=== PATIENT | female | born 1965 | race African-American/Black ===

== ENCOUNTER 2017-04-29 10:11 | Outpatient (CLI) | payer OTHER ==
[2017-04-29 11:01] LABS: ALT (SGPT) 16 U/L (8-55); AST (SGOT) 15 U/L (5-34); Albumin 3.9 g/dL (3.5-5.0); Alkaline Phosphatase 95 U/L (40-150); Anion Gap 15 mmol/L (10-20); BUN (Urea Nitrogen) 9 mg/dL (9.8-20.1); Bilirubin, Total 0.6 mg/dL (0.2-1.2); Calc. Creatinine Clearance 0 mL/min (70-130); Calcium 9.9 mg/dL (7.8-10.44); Carbon Dioxide 26 mmol/L (22-29); Cardiac Risk 4.1 (Less than 4.5); Chloride 106 mmol/L (98-107); Cholesterol 163 mg/dl (< 200 Desired); Estimated GFR-MDRD Greater than 90; Globulin 3.3 g/dL (2.4-3.5); Glucose 212 mg/dL (70-105); HDL Cholesterol 40 mg/dL (>60 Neg Risk); LDL Cholesterol, Calculated 105 mg/dL; Potassium 4.3 mmol/L (3.5-5.1); Protein, Total 7.2 g/dL (6.0-8.3); Sodium 143 mmol/L (136-145); Triglycerides 89 mg/dL (Less than 150)
[2017-04-29 11:12] LABS: Hemoglobin A1c 12.7 % (4.0-6.0)
[2017-04-29 11:47] LABS: Thyroid Stimulating Hormone 0.003 uIU/mL (0.35-4.94); Vitamin D, 25 Hydroxy 41.3 ng/ml (> 30.0)
[2017-04-29 21:37] LABS: Free Thyroxine Index 2.74 (1.4-3.1); T4 9.3 ug/dL (4.87-11.72)
== END 2017-04-29 10:12 | disposition home or self-care (01) ==
LOC: BURLAB 10:11
PROVIDERS: ATTEND Internal Medicine
DX: R53.81 Other malaise (principal); E11.65 Type 2 diabetes mellitus with hyperglycemia; E78.00 Pure hypercholesterolemia, unspecified; E03.9 Hypothyroidism, unspecified; E55.9 Vitamin D deficiency, unspecified; D51.8 Other vitamin B12 deficiency anemias; Z79.899 Other long term (current) drug therapy
CPT/HCPCS: 36415; 80053; 80061; 82306; 82607; 83036; 84436; 84443; 84479

== ENCOUNTER 2019-12-13 19:11 | Emergency (ER) | payer OTHER ==
[~2019-12-13 19:11] MED LIST: Iopamidol 370 76% 100 ML VIAL ONE
[2019-12-13] MEDS ORDERED: Pantoprazole 40 MG VIAL ONE (19:30)
[2019-12-13] MEDS ORDERED: Ondansetron PF 4 MG/2 ML Vial ONE (19:30)
[2019-12-13 19:34] LABS: Hemoglobin 14.4 g/dL (12.0-16.0); Mean Corpuscular HGB CONC 30.1 g/dL (32.0-36.0); Mean Corpuscular Hemoglobin 22.9 pg (27.0-31.0); Mean Corpuscular Volume 76.1 fL (78.0-98.0); Mean Platelet Volume 11.9 fL (7.4-10.4); Platelet Count 172 thou/uL (130-400); RBC Distribution Width 15.1 % (11.5-14.5); White Blood Cell (WBC) Count 10.4 thou/uL (4.8-10.8)
[2019-12-13 19:57] LABS: Band 5 % (5-11); Eosinophils 1 % (0-10); Hypochromia SLIGHT = 6-15 cells (100X) (0-5/hpf); Lymphocytes 16 % (21-51); MDiff Complete? YES; Microcytosis SLIGHT = 6-15 cells (100X) (0-5/hpf); Monocytes 9 % (0-10); Neutrophil 69 % (42-75)
[2019-12-13 20:00] LABS: Clarity Clear (Clear); Leukocyte Small (Negative); Nitrite Negative (Negative); Protein, Urine (Dipstick) Negative (Neg-Trace)
[2019-12-13 20:01] LABS: Bilirubin Negative (Negative); Blood, Urine Trace (Negative); Glucose, Urine (Dipstick) 500 mg/dL (Negative); Urobilinogen 0.2 mg/dL (Less than 2)
[2019-12-13 20:02] LABS: Bacteria/HPF 1+ HPF (None Seen); RBC/HPF 0-3 HPF (0-3); Squamous Epithelial 0-3 HPF (0-3)
[2019-12-13 20:04] LABS: ALT (SGPT) 19 U/L (8-55); AST (SGOT) 16 U/L (5-34); Albumin 4.6 g/dL (3.5-5.0); Alkaline Phosphatase 139 U/L (40-110); Anion Gap 31 mmol/L (10-20); BUN (Urea Nitrogen) 19 mg/dL (9.8-20.1); Bilirubin, Total 0.6 mg/dL (0.2-1.2); CK (CPK) 50 U/L (29-168); Calc. Creatinine Clearance 0 mL/min (70-130); Calcium 10.7 mg/dL (7.8-10.44); Carbon Dioxide 21 mmol/L (22-29); Chloride 101 mmol/L (98-107); Estimated GFR-MDRD 64; Globulin 3.9 g/dL (2.4-3.5); Glucose 310 mg/dL (70-105); Lipase 9 U/L (8-78); Magnesium 2.5 mg/dL (1.6-2.6); Potassium 4.4 mmol/L (3.5-5.1); Protein, Total 8.5 g/dL (6.0-8.3); Sodium 149 mmol/L (136-145)
[2019-12-13] MEDS ORDERED: Insulin Regular 300 UNITS/3 ML VIAL ONE (20:09)
[2019-12-13 20:15] LABS: PTT 24.4 SEC (22.9-36.1); Prothrombin Time 12.9 SEC (12.0-14.7)
--- NOTE | 2019-12-13 20:37 | CT ---
CT ABDOMEN AND PELVIS WITH CONTRAST: Date: 12-13-[address] of the abdomen and pelvis was performed for evaluation of nausea, vomiting, and hematemesis . IV contrast was employed. FINDINGS: The lung bases are clear. The liver, spleen, pancreas, adrenal glands, kidneys and abdominal aorta sh owed no acute findings. The gallbladder contains no sign of stones. The stomach is fluid filled but not really distended. The rugal folds do not seem unduly thickened. T he bowel shows no distention, wall thickening, or inflammatory change around it. The appendix was kecia ntified and appears normal. There is no free air or free fluid. CT of the pelvis shows no pelvic masses, fluid collections, or inflammatory changes. Incidentally not ed is a degenerated disc at L4-5. IMPRESSION: No definite acute abdominal or pelvic findings. POS: HOME
[2019-12-13 21:47] LABS: Iron 37 ug/dL (50-170); Iron Binding Capacity, Total 266 mcg/dL (265-497)
== END 2019-12-13 20:45 | disposition short-term general hospital (02) ==
LOC: BURERS 19:11
DX: K92.2 Gastrointestinal hemorrhage, unspecified (principal); E11.10 Type 2 diabetes mellitus with ketoacidosis without coma; E03.9 Hypothyroidism, unspecified; E78.5 Hyperlipidemia, unspecified; Z79.899 Other long term (current) drug therapy; Z79.82 Long term (current) use of aspirin; Z79.4 Long term (current) use of insulin
CPT/HCPCS: 74177; 80053; 81003; 81015; 82550; 82728; 83540; 83550; 83605; 83690; 83735; 85025; 85610; 85730; 93005; 96365; 96375; C9113; J1815; J2405; Q9967

== ENCOUNTER 2021-12-31 13:12 | Emergency (ER) | payer BC ==
[2021-12-31] MEDS ORDERED: Ketorolac Tromethamine 30 MG/ML VIAL ONE (14:00)
== END 2021-12-31 14:15 | disposition home or self-care (01) ==
LOC: BURERS 13:12
DX: M75.51 Bursitis of right shoulder (principal); E11.9 Type 2 diabetes mellitus without complications; E03.9 Hypothyroidism, unspecified; E78.5 Hyperlipidemia, unspecified; I10 Essential (primary) hypertension
CPT/HCPCS: 96372; J1885

== ENCOUNTER 2022-04-26 02:53 | Emergency (ER) | payer BC, OTHER ==
[2022-04-26] MEDS ORDERED: Aspirin Chewable 81 MG TAB ONE (03:39)
[2022-04-26] MEDS ORDERED: Ondansetron PF 4 MG/2 ML Vial ONE ×3 (03:39→11:53)
[2022-04-26 03:48] LABS: Bilirubin Negative (Negative); Blood, Urine Negative (Negative); Clarity Clear (Clear); Glucose, Urine (Dipstick) 500 mg/dL (Negative); Ketone, Urine Negative (Negative); Leukocyte Negative (Negative); Nitrite Negative (Negative); Protein, Urine (Dipstick) Negative (Neg-Trace); Specific Gravity, Urine 1.015 (1.005-1.030)
[2022-04-26 04:00] LABS: ALT (SGPT) 17 U/L (8-55); AST (SGOT) 14 U/L (5-34); Albumin 4.3 g/dL (3.5-5.0); Alkaline Phosphatase 134 U/L (40-110); Anion Gap 20 mmol/L (10-20); BUN (Urea Nitrogen) 5 mg/dL (9.8-20.1); Bilirubin, Total 0.7 mg/dL (0.2-1.2); Calc. Creatinine Clearance 0 mL/min (70-130); Calcium 10.4 mg/dL (7.8-10.44); Carbon Dioxide 31 mmol/L (22-29); Chloride 96 mmol/L (98-107); Estimated GFR 90; Globulin 3.9 g/dL (2.4-3.5); Glucose 411 mg/dL (70-105); Lipase 12 U/L (8-78); Mean Corpuscular Hemoglobin 23.7 pg (27.0-31.0); Mean Corpuscular Volume 74.1 fL (78.0-98.0); Mean Platelet Volume 9.3 fL (7.4-10.4); Platelet Count 161 thou/uL (130-400); Potassium 3.2 mmol/L (3.5-5.1); Protein, Total 8.2 g/dL (6.0-8.3); Red Blood Cell (RBC) Count 6.35 mill/uL (4.20-5.40); Sodium 144 mmol/L (136-145); White Blood Cell (WBC) Count 6.7 thou/uL (4.8-10.8)
[2022-04-26 04:30] LABS: Band 1 % (5-11); Eosinophils 2 % (0-10); Hypochromia SLIGHT = 6-15 cells (100X) (0-5/hpf); Lymphocytes 39 % (21-51); MDiff Complete? YES; Microcytosis SLIGHT = 6-15 cells (100X) (0-5/hpf); Monocytes 10 % (0-10); Neutrophil 47 % (42-75); Platelet Morphology Comment Appears Adequate
[2022-04-26] MEDS ORDERED: Potassium Chloride 20 MEQ TAB ONE (04:34)
[2022-04-26] MEDS ORDERED: Potassium Chloride 20 MEQ/100 ML PREMIX BAG ONE (05:32)
[2022-04-26] MEDS ORDERED: Promethazine HCl 25 MG/ML VIAL ONE (05:33)
[2022-04-26 08:39] LABS: CKMB 3.7 ng/mL (0-6.6)
[2022-04-26] MEDS ORDERED: Metoprolol Tartrate 5 MG/5 ML VIAL ONE (09:03)
[2022-04-26] MEDS ORDERED: diphenhydrAMINE 50 MG/ML VIAL ONE (09:03)
[2022-04-26] MEDS ORDERED: Metoclopramide HCl 10 MG/2 ML VIAL ONE (09:03)
[2022-04-26 11:46] LABS: CKMB 5.9 ng/mL (0-6.6)
[2022-04-26] MEDS ORDERED: Enoxaparin Sodium 30 MG/0.3 ML SYRINGE ONE (11:53)
[2022-04-26] MEDS ORDERED: Enoxaparin Sodium 100 MG/ML SYRINGE ONE (11:53)
== END 2022-04-26 14:15 | disposition short-term general hospital (02) ==
LOC: BURERS 02:53
DX: E11.65 Type 2 diabetes mellitus with hyperglycemia (principal); R00.0 Tachycardia, unspecified; R11.2 Nausea with vomiting, unspecified; R79.89 Other specified abnormal findings of blood chemistry; E03.9 Hypothyroidism, unspecified; I10 Essential (primary) hypertension; E78.5 Hyperlipidemia, unspecified; Z79.4 Long term (current) use of insulin; Z79.891 Long term (current) use of opiate analgesic; Z79.82 Long term (current) use of aspirin; Z79.899 Other long term (current) drug therapy
CPT/HCPCS: 36415; 36416; 71045; 80053; 81003; 82553; 83690; 84484; 85025; 93005; 94760; 96361; 96365; 96366; 96372; 96375; 96376; J1200; J1650; J2405; J2550; J2765; J3480